=== PATIENT | female | born 1950 | race Hispanic/Latino ===

== ENCOUNTER 2016-12-25 13:41 | Outpatient (CLI) | payer OTHER ==
--- NOTE | 2016-12-25 16:15 | RAD ---
TWO VIEWS RIGHT WRIST: DATE: 12/25/16. HISTORY: Right wrist fracture by history. FINDINGS: There is sclerosis along the distal radial metaphysis with mild irregularity involving the lateral a spect of the distal radius and there is also a curvilinear area of increased density seen volar to t he distal radius. Findings are most suggestive of a nondisplaced fracture of the distal right radia l metaphysis, although the exact age is difficult to determine on this exam, and this may represent a more remote fracture. However, correlation with prior studies is suggested given the history of f racture. No displaced fracture fragment is seen. There is no evidence of a dislocation. There is a suggestion of minimal subcutaneous soft tissue posterior to the distal radius. IMPRESSION: Fracture of indeterminate age involving the distal right radial metaphysis with probable intraarticu lar extension. The exact age of this fracture is difficult to determine but may be more remote in o rigin. There is sclerosis in the distal radial metaphysis. Correlation with prior studies is recom mended if available. POS: [facility]
== END 2016-12-25 13:42 | disposition home or self-care (01) ==
LOC: MADRAD 13:41
PROVIDERS: ATTEND Orthopaedic Surgery
DX: S62.101A Fracture of unspecified carpal bone, right wrist, initial encounter for closed fracture (principal)

== ENCOUNTER 2019-09-05 08:33 | Outpatient (CLI) | payer OTHER ==
--- NOTE | 2019-09-05 08:50 | RAD ---
EXAM: XR Thoracic Spine 2 View PROVIDED CLINICAL HISTORY: Chronic thoracic back pain. No history of trauma. COMPARISON: None FINDINGS: There are scattered osteophytes seen within the thoracic spine. The vertebral body heights and interv ertebral disc spaces are within normal limits. No fracture or subluxation is visualized. Degenerative changes are seen in the visualized cervical spine. IMPRESSION: Mild degenerative changes in thoracic spine without evidence of an acute osseous abnormality.
== END 2019-09-05 08:34 | disposition home or self-care (01) ==
LOC: MADRAD 08:33
PROVIDERS: ATTEND Internal Medicine
DX: M54.6 Pain in thoracic spine (principal); M47.814 Spondylosis without myelopathy or radiculopathy, thoracic region
CPT/HCPCS: 72070

== ENCOUNTER 2020-10-29 11:27 | Outpatient (CLI) | payer OTHER ==
--- NOTE | 2020-10-29 11:50 | RAD ---
3 views of the left shoulder: 10/29/2020 COMPARISON: None HISTORY: Chronic left-sided shoulder pain FINDINGS: There is degenerative change involving the left acromioclavicular joint with interspace benedicto rowing and mild inferior osteophyte formation. There is no widening of the coracoclavicular interspace. There is mild elevation of the left humeral head which may signify underlying rotator cuf f pathology. There is glenohumeral joint space narrowing with mild inferior glenoid osteophyte formation. No displaced fracture or dislocation. IMPRESSION: Degenerative joint disease. No acute fracture or dislocation. Mild elevation of the left humeral head. If there is concern for rotator cuff pathology, follow-up MRI suggested.
== END 2020-10-29 11:28 | disposition home or self-care (01) ==
LOC: MADRAD 11:27
PROVIDERS: ATTEND Family Medicine
DX: M25.512 Pain in left shoulder (principal); G89.29 Other chronic pain; M19.012 Primary osteoarthritis, left shoulder; W19.XXXA Unspecified fall, initial encounter
CPT/HCPCS: 87077; 87086

== ENCOUNTER 2022-11-13 09:14 | Outpatient (CLI) | payer OTHER | END 2022-11-13 09:15 | disposition home or self-care (01) | LOC: MADLAB 09:14 → MADRAD 09:15 | PROVIDERS: ATTEND Family Medicine | DX: S20.219A Contusion of unspecified front wall of thorax, initial encounter (principal); M25.511 Pain in right shoulder; M19.011 Primary osteoarthritis, right shoulder; M85.811 Other specified disorders of bone density and structure, right shoulder ==

== ENCOUNTER 2023-02-03 12:57 | Outpatient (CLI) | payer OTHER ==
[2023-02-03 13:31] LABS: #Basophils 0.1 thou/uL (0.0-0.2); #Eosinphils 0.1 thou/uL (0.0-0.7); #Lymphocytes 1.8 thou/uL (1.20-3.40); #Monocytes 0.4 thou/uL (0.11-0.59); #Neutrophils 2.5 thou/uL (1.40-6.50); %Basophils 1.2 % (0.0-1.0); %Eosinophils 2.5 % (0.0-10.0); %Lymphocytes 37.4 % (21.0-51.0); %Monocytes 7.3 % (0.0-10.0); %Neutrophils 51.6 % (42.0-75.0); MDiff Complete? YES; Macrocytosis SLIGHT = 6-15 cells (100X) (0-5/hpf); Mean Corpuscular Volume 106.3 fl (78.0-98.0); Mean Platelet Volume 10.1 fL (7.4-10.4); Platelet Count 199 10x3/uL (130-400); Platelet Morphology Comment Appears Adequate; RBC Distribution Width 12.5 % (11.5-14.5); Red Blood Cell (RBC) Count 4.11 mill/uL (4.20-5.40); White Blood Cell (WBC) Count 4.7 10x3/uL (4.8-10.8)
[2023-02-03 13:41] LABS: ALT (SGPT) 24 U/L (8-55); AST (SGOT) 36 U/L (5-34); Albumin 4.3 g/dL (3.4-4.8); Alkaline Phosphatase 76 U/L (40-110); Anion Gap 12 mmol/L (10-20); BUN (Urea Nitrogen) 20 mg/dL (9.8-20.1); Bilirubin, Total 0.4 mg/dL (0.2-1.2); Calc. Creatinine Clearance 0 mL/min (70-130); Calcium 9.8 mg/dL (7.8-10.44); Carbon Dioxide 26 mmol/L (23-31); Cardiac Risk 3.9 (Less than 4.5); Chloride 104 mmol/L (98-107); Cholesterol 272 mg/dl (< 200 Desired); Estimated GFR 79; Globulin 2.9 g/dL (2.4-3.5); Glucose 92 mg/dL (83-110); HDL Cholesterol 70 mg/dL (>60 Neg Risk); LDL Cholesterol, Calculated 173 mg/dL; Potassium 3.9 mmol/L (3.5-5.1); Protein, Total 7.2 g/dL (5.8-8.1); Sodium 138 mmol/L (136-145); Triglycerides 143 mg/dL (Less than 150)
== END 2023-02-03 12:58 | disposition home or self-care (01) ==
LOC: MADLABBHPM 12:57 → MADLAB 12:58
PROVIDERS: ATTEND Family Medicine
DX: D75.89 Other specified diseases of blood and blood-forming organs (principal); I10 Essential (primary) hypertension; E78.2 Mixed hyperlipidemia
CPT/HCPCS: 80053; 80061; 85025

== ENCOUNTER 2023-05-06 09:09 | Outpatient (CLI) | payer OTHER | END 2023-05-06 09:10 | disposition home or self-care (01) | LOC: MADRAD 09:09 | PROVIDERS: ATTEND Family Medicine | DX: M25.432 Effusion, left wrist (principal); S40.022A Contusion of left upper arm, initial encounter; S52.302D Unspecified fracture of shaft of left radius, subsequent encounter for closed fracture with routine healing ==